=== PATIENT | male | born 1940 | race Caucasian/White ===

== ENCOUNTER 2018-02-03 09:47 | Emergency (ER) | payer BC ==
[~2018-02-03] VITALS: Ht 172.7 cm; Wt 68.0 kg
[2018-02-03 10:10] VITALS: BP_SYST 136
[2018-02-03] MEDS ORDERED: KETOROLAC TROMETHAMINE 60 MG/2 ML VIAL IM ONE (13:15)
[2018-02-03 13:54] VITALS: BP_SYST 134
== END 2018-02-03 13:54 | disposition home or self-care (01) ==
LOC: SED 09:47
DX: M54.5 Low back pain (principal); G89.29 Other chronic pain; R03.0 Elevated blood-pressure reading, without diagnosis of hypertension
CPT/HCPCS: 96372; 99283; J1885

== ENCOUNTER 2022-08-07 11:34 | Emergency (ER) | payer BC ==
[~2022-08-07] VITALS: Ht 172.7 cm; Wt 69.9 kg
[2022-08-07 11:43] VITALS: BP_SYST 139
[2022-08-07] MEDS ORDERED: KETOROLAC TROMETHAMINE 30 MG VIAL IM ONE (12:00)
[2022-08-07] MEDS ORDERED: IBUP-1969 PO (13:30)
[2022-08-07] MEDS ORDERED: TRAM50TA2 PO (13:30)
[2022-08-07 13:58] VITALS: BP_SYST 127
== END 2022-08-07 13:59 | disposition home or self-care (01) ==
LOC: SED 11:34
DX: M54.32 Sciatica, left side (principal); M54.50 Low back pain, unspecified; M79.652 Pain in left thigh; Z79.899 Other long term (current) drug therapy
CPT/HCPCS: 99283; 72100; 96372; J1885